=== PATIENT | male | born 1975 | race Caucasian/White ===

== ENCOUNTER 2017-11-10 23:29 | Emergency (ER) | payer BC ==
[2017-11-10 23:30] VITALS: BP 160/77; PULSE 105; RESP 18; TEMP 99; O2SAT 99
--- NOTE | 2017-11-11 00:13 | PD ---
HPI Chief Complaint: Eye Problems/Injury Time Seen by Provider: 23:56 Travel History International Travel<30 days: No Contact w/Intl Traveler<30days: No Traveled to known affect area: No History of Present Illness HPI 42-year-old male arrives to the ER with complaint of left eye pain and redness with some tearing. He was playing football tonight. He reports another player scraped his eye. Since then he has had continuous pain. He denies loss of vision or double vision. Pain is constant. It is of moderate severity. He does not recall last tetanus. PFSH Past Medical History Medical History: Denies Significant Hx Diminished Hearing: No Immunizations Current: Yes Past Surgical History Surgical History: No Previous Surgery Social History Alcohol Use: No Tobacco Use: No Substance Use: No Allergies-Medications (Allergen,Severity, Reaction): Coded Allergies: No Known Allergies (Unverified , 11/10/17) Review of Systems General / Constitutional: No: Fever Eyes: Positive: Blurred Vision, Redness, Pain, Tearing, No: Photophobia HENT: No: Headaches Cardiovascular: No: Chest Pain or Discomfort, Irregular Rhythm Respiratory: No: Cough Physical Exam Narrative GENERAL: 42-year-old male pleasant well-nourished well-developed Vital Signs Date Time Temp Pulse Resp B/P (MAP) Pulse Ox O2 Delivery O2 Flow Rate FiO2 11/10/17 23:30 99.0 105 18 160/77 (104) 99 SKIN: Warm and dry. HEAD: Atraumatic. Normocephalic. EYES: Pupils equal and round. No scleral icterus. No injection or drainage. Fluorescein staining of the left eye shows no corneal abrasion. The globe is intact. There is no foreign body. There is a fair amount of some conjunctival erythema. ENT: No nasal bleeding or discharge. Mucous membranes pink and moist. NECK: Trachea midline. No JVD. Data Data Last Documented VS Vital Signs Date Time Temp Pulse Resp B/P (MAP) Pulse Ox O2 Delivery O2 Flow Rate FiO2 11/10/17 23:30 99.0 105 18 160/77 (104) 99 MDM Medical Decision Making Medical Screen Exam Complete: Yes Emergency Medical Condition: Yes Medical Record Reviewed: Yes Differential Diagnosis Corneal abrasion, open globe, foreign body Narrative Course Fluorescein stain revealed no corneal abrasion. No foreign body was visualized either. We will focus on pain control. Diagnosis Primary Impression: Eye injury, superficial Qualified Codes: S05.8X2A - Other injuries of left eye and orbit, initial encounter Additional Impression: Eye injury, non-penetrating Qualified Codes: S05.92XA - Unspecified injury of left eye and orbit, initial encounter Referrals: Primary Care Physician call for appointment Med/Other Pt SpecificInfo: Prescription(s) given Disposition: 01 DISCHARGE HOME Condition: Stable Washington Gentile MD November 11, 2017 00:13
[2017-11-11] MEDS ORDERED: ACETAMINOPHEN/HYDROcodone 325 MG/5 MG TAB PO ONE (00:15)
== END 2017-11-11 00:38 | disposition home or self-care (01) ==
LOC: NEPD 23:29
DX: S05.92XA Unspecified injury of left eye and orbit, initial encounter (principal); W50.0XXA Accidental hit or strike by another person, initial encounter; Y93.61 Activity, american tackle football
CPT/HCPCS: 99283